=== PATIENT | male | born 1955 | race Two or more races ===

== ENCOUNTER → 2018-12-15 | Outpatient (CLI) | payer MEDICARE, OTHER ==
[~2018-12-15] MED LIST: DICY10CA3 PO; INSU100I13 SQ; LISI1TAB7 PO; LOPE2TAB27 PO; METF10007 PO; OXYC1TAB15 PO; PANT20TA2 PO
--- NOTE | 2018-12-15 13:56 | KCIC ---
Complete abdomen ultrasound study Clinical indications: Generalized abdominal pain. FINDINGS: The pancreas is homogeneous without focal enlargement. No focal aneurysmal dilatation of the proximal or mid abdominal aorta is seen. The distal abdominal aorta is obscured by overlying bowel gas. The IVC is unremarkable. The liver measures 16.7 cm in length which is normal. No focal hepatic mass is seen. Gallstones are seen within the gallbladder. No gallbladder wall thickening or pericholecystic free fluid is evident. The extrahepatic bile duct measures 5 mm in caliber which is normal. The length of the right kidney is 12.7 cm and the length of the left kidney is 12.4 cm. No hydronephrosis or renal mass or perinephric fluid collection is seen on either side. The spleen measures 10.7 cm in length which is normal. No ascites is seen. IMPRESSION: Cholelithiasis. Electronically signed by: Jose Alberto Herman MD (12/15/2018 1:54 PM) [facility]
== END | disposition home or self-care (01) ==
LOC: KCIC US 08:25
PROVIDERS: ATTEND Family Medicine
DX: K80.20 Calculus of gallbladder without cholecystitis without obstruction (principal)
CPT/HCPCS: 76700

== ENCOUNTER → 2019-01-11 | Day surgery (SDC) | payer OTHER ==
[~2019-01-11] VITALS: Ht 170.2 cm; Wt 88.9 kg
[~2019-01-11] MED LIST changes: +ACETAMINOPHEN 500 MG TABLET PO ONE; +BUPIVACAINE-EPI 0.25%-1:200000 MPF 30 ML VIAL. ONE; +DEXAMETHASONE SOD PHOS 4 MG/ML VIAL ONE; +GLYCOPYRROLATE 1 MG/5 ML VIAL. ONE; +HYDROmorphone 2 MG/ML VIAL IV PRN; +IOHEXOL 300 MG/ML 50 ML VIAL. ONE; +IV RINGERS,LACTATED 1000ML 1,000 ML IV SCH; +LIDOCAINE 1% PF 2 ML VIAL. ID PRN; +LIDOCAINE 2% PF 5 ML VIAL. ONE; +MIDAZOLAM HCL/PF 2 MG/2 ML VIAL. ONE; +MORPHINE SULFATE 2 MG/ML VIAL. IV PRN; +NEOSTIGMINE METHYLSULFATE 5 MG/5 ML SYRINGE. ONE; +ONDANSETRON PF 4 MG/2 ML VIAL. IV PRN; +ONDANSETRON PF 4 MG/2 ML VIAL. ONE; +PROCHLORPERAZINE 10 MG/2 ML VIAL. IV PRN; +PROPOFOL 20 ML IV ONE; +ROCURONIUM 50 MG/5 ML VIAL. ONE; +SCOPOLAMINE 1.5MG PATCH. TD ONE; +SEVOFLURANE 61 TO 120 MINUTES. IH ONE; +SURGICEL HEMOSTAT 4X8 EACH. ONE; +fentaNYL PF VIAL 100 MCG/2 ML VIAL IV PRN; +fentaNYL PF VIAL 100 MCG/2 ML VIAL ONE; +hydrALAZINE 20 MG/ML VIAL. IVP ONE; +hydrALAZINE 20 MG/ML VIAL. ONE; +oxyCODONE/APAP 5/325 1 TAB TABLET PO ONE
--- NOTE | 2019-01-11 11:22 | PDOC4 ---
Operative Note Operative Note Date: 01/11/2019 Preoperative diagnosis: Chronic cholecystitis cholelithiasis Postoperative diagnosis: Same Procedure: Robotic-assisted laparoscopic cholecystectomy Surgeon: Nate Specimen: Gallbladder Dictation: Patient is a 63-year-old gentleman has had right upper quadrant abdominal pain postprandial nausea and an ultrasound showing gallstones. Procedure of robotic-assisted laparoscopic cholecystectomy was explained to the patient detail all wrist benefits were also discussed including bleeding infection injury to intra-abdominal contents possibly necessitating further or open operations alternatives to this procedure also discussed with the patient who seemed to understand and gave both verbal and written consent to have the procedure performed. Patient was taken to the operative room placed in supine position general anesthesia was initiated once patient was sleep and intubated his abdomen was prepped and draped usual sterile fashion using ChloraPrep and area in the left upper quadrant was injected with quarter percent Marcaine with epinephrine incision was made with 11 blade scalpel and a 5 mm Visiport was placed under direct visualization and abdomen creating pneumoperitoneum once this complete and the abdomen was inspected there were a few adhesions in the right lower quadrant where he has colostomy takedown but these were not involved in the operative field a 8mm da Brendon port was placed at the umbilicus 8mm da Brendon port was placed in the right mid abdomen and a 8mm da Brendon port was placed in the left mid abdomen all under direct visualization. The robot was brought in and docked all port sites surgeon went to the robotic console using a grasper and hook cautery the infundibulum of the gallbladder is grasped and retracted laterally exposing the triangle adherent tissues of the triangle were taken down exposing the cystic duct and cystic artery both were clipped with hemo-lock clips and transected the gallbladder was taken off the liver with hook electrocautery right upper quadrant was irrigated and suctioned dry hemostasis deemed appropriate at that point surgeon went back to the robotic console robot was undocked from all ports a Endo Catch bag was placed through the umbilical port and the gallbladder was removed from the umbilical port site. All ports removed the fascial defect at the umbilicus closed [id number] 0 Vicryl suture and skin was approximate all port sites for septic and a Monocryl Mastisol Steri-Strips and island dressings were applied. Patient was awakened and asked bated operating room taken to recovery in stable condition all sponge instrument needle counts listed as correct estimate blood loss 5 mL ELIE JONES MD January 11, 2019 11:22
--- NOTE | 2019-01-11 11:25 | DISCH ---
DISCHARGE INSTRUCTIONS Condition on Discharge Condition on Discharge: Stable Activity After Discharge Activity Instructions for Disc: Avoid exertion Other activity instructions: no lifting more than 20 pounds for 2 weeks Diet after Discharge Diet after Discharge: Low Fat Wound Incision Care Other wound/incision instructi: Tricia shower in 24 hours Contacting the after DC Call your doctor for: If your condition worsens Follow-Up Follow up with: Dr. Jones in 2 weeks ELIE JONES MD January 11, 2019 11:25
[2019-01-11] MEDS: fentaNYL PF VIAL 100 MCG/2 ML VIAL IV PRN ×2 (11:40→12:22)
[2019-01-11 13:00] VITALS: BP 186/70
--- NOTE | 2019-01-13 19:06 | PATHOLOGY ---
[facility] Accession Number: [id number] . 01 Material submitted: . gallbladder - GALLBLADDER . 01 Clinical history: . Symptomatic cholelithiasis. . 02 Diagnosis: Gallbladder, cholecystectomy: - Chronic cholecystitis. - Cholesterolosis. - Cholelithiasis. (SKM/db; 01/12/2019) LBQ/01/12/2019 . 02 Electronically signed: . Ethan Bryson MD, Pathologist NPI- [id number] . 01 Gross description: . Received in formalin labeled "Randall, Tod, gallbladder" is a previously opened cholecystectomy specimen measuring 7.5 x 3.5 x 2.5 cm. The serosa is yellow-pink and smooth with a full-thickness defect in the hepatic bed measuring 0.6 x 0.5 cm, and the specimen is opened to reveal pink-green diffusely stippled mucosa without polyps or masses. The average wall thickness is 0.2 cm. Calculi are present, which are multifaceted, yellow-green, measure in aggregate 2.6 x 2.6 x 1.2 cm, and range from 1.3-1.5 cm in greatest dimension. Senior Qa Tester sections of the fundus and body and the cystic duct margin are submitted in A1. ([facility]; 01/11/2019) SYC/SYC . 02 Pathologist provided ICD-10: K80.10, K82.4 . 02 CPT . 401067 Specimen Comment: A courtesy copy of this report has been sent to Specimen Comment: [phone], . Specimen Comment: Report sent to / DR QUEZADA Performed at: 01 [facility] [address] [id number] MD Duke Chirinos MD Phone: [phone] Performed at: [address] [id number] MD Roberto Youngblood MD Phone: [phone]
== END | disposition home or self-care (01) ==
LOC: SURG 08:54
PROVIDERS: ATTEND Surgery
DX: K80.10 Calculus of gallbladder with chronic cholecystitis without obstruction (principal); I10 Essential (primary) hypertension; E11.9 Type 2 diabetes mellitus without complications; Z85.038 Personal history of other malignant neoplasm of large intestine; Z79.84 Long term (current) use of oral hypoglycemic drugs; Z79.899 Other long term (current) drug therapy; Z90.49 Acquired absence of other specified parts of digestive tract; Z98.890 Other specified postprocedural states
CPT/HCPCS: 47562; 82962; 88304; A7015; J0360; J0696; J1100; J2001; J2405; J2704; J2710; J3010; J3490; J7030; J7120; S2900; J0780; J2250; Q9967

== ENCOUNTER → 2019-09-12 | Outpatient (CLI) | payer MEDICARE, OTHER ==
[2019-01-11 13:00] VITALS: BP 186/70
[~2019-09-12] MED LIST changes: -ACETAMINOPHEN 500 MG TABLET PO ONE; -BUPIVACAINE-EPI 0.25%-1:200000 MPF 30 ML VIAL. ONE; +CONTRAST GIVEN. MC PRN; -DEXAMETHASONE SOD PHOS 4 MG/ML VIAL ONE; -GLYCOPYRROLATE 1 MG/5 ML VIAL. ONE; -HYDROmorphone 2 MG/ML VIAL IV PRN; +IOHEXOL 240 MG/ML 50ML VIAL. PO ONE; -IOHEXOL 300 MG/ML 50 ML VIAL. ONE; -IV RINGERS,LACTATED 1000ML 1,000 ML IV SCH; -LIDOCAINE 1% PF 2 ML VIAL. ID PRN; -LIDOCAINE 2% PF 5 ML VIAL. ONE; +LISI1TAB20 PO; -LISI1TAB7 PO; -MIDAZOLAM HCL/PF 2 MG/2 ML VIAL. ONE; -MORPHINE SULFATE 2 MG/ML VIAL. IV PRN; -NEOSTIGMINE METHYLSULFATE 5 MG/5 ML SYRINGE. ONE; -ONDANSETRON PF 4 MG/2 ML VIAL. IV PRN; -ONDANSETRON PF 4 MG/2 ML VIAL. ONE; -PROCHLORPERAZINE 10 MG/2 ML VIAL. IV PRN; -PROPOFOL 20 ML IV ONE; -ROCURONIUM 50 MG/5 ML VIAL. ONE; -SCOPOLAMINE 1.5MG PATCH. TD ONE; -SEVOFLURANE 61 TO 120 MINUTES. IH ONE; -SURGICEL HEMOSTAT 4X8 EACH. ONE; -fentaNYL PF VIAL 100 MCG/2 ML VIAL IV PRN; -fentaNYL PF VIAL 100 MCG/2 ML VIAL ONE; -hydrALAZINE 20 MG/ML VIAL. IVP ONE; -hydrALAZINE 20 MG/ML VIAL. ONE; -oxyCODONE/APAP 5/325 1 TAB TABLET PO ONE
--- NOTE | 2019-09-12 16:29 | RAD ---
CT Abdomen and Pelvis without contrast History: Abdominal pain, history of colon cancer Technique: Noncontrast CT imaging was performed of the abdomen and pelvis. Oral contrast was given. Multiplanar images are reviewed. Exposure: One or more of the following individualized dose reduction techniques were utilized for this examination: 1. Automated exposure control 2. Adjustment of the mA and/or kV according to patient size 3. Use of iterative reconstruction technique. Comparison: None Findings: As seen on the first image, there may be a small right lower lobe pulmonary nodule about 0.2 cm image 1 series 2. There is no pleural fluid of the visualized lung bases. Accurate evaluation of the abdominal visceral organs is limited without intravenous contrast, no obvious focal abnormality of the liver, spleen, pancreas. Gallbladder is not seen. There is no adrenal nodularity. There is no hydronephrosis of either kidney or renal calculus. Bowel is not significantly dilated. There is no free fluid or free air. There is some variable retained stool in the colon. There is postsurgical change near the rectum. There is also postsurgical change in the right pelvis associated with the distal small bowel, degree of associated wall thickening in the right pelvis difficult to exclude on this exam. There is no significant inflammatory type change about the bowel. Normal caliber appendix is visualized. There is likely minimal bulge at L4-5 probably at least mild narrowing of the lateral recesses at L4-5, also likely degree of at least mild spinal stenosis at L3-4 difficult to accurately characterize on this nonmyelographic exam. There is a focus of nonspecific sclerosis of the left iliac bone about 0.8 cm. Impression: 1. There are postsurgical changes as stated, difficult to exclude degree of nonspecific wall thickening near site of small bowel anastomotic site in the right pelvis although no adjacent inflammatory change. There is no CT evidence of acute appendicitis. There is variable retained stool in the colon. 2. There may be a tiny right lower lobe pulmonary nodule as seen on the first image, lungs not fully evaluated. If concern for other nodules, dedicated chest CT could be indicated. Regarding the visualized nodule, optional 12 month follow-up could be performed as per Fleischner guidelines. Electronically signed by: Elton Rogers MD (09/12/2019 4:26 PM) [email or web address]
== END | disposition home or self-care (01) ==
LOC: CT 09:14
PROVIDERS: ATTEND Family Medicine
DX: R10.9 Unspecified abdominal pain (principal); I10 Essential (primary) hypertension; E11.9 Type 2 diabetes mellitus without complications; Z85.038 Personal history of other malignant neoplasm of large intestine
CPT/HCPCS: 74176; Q9966